=== PATIENT | female | born 1935 | race Caucasian/White ===

== ENCOUNTER → 2021-01-22 | Outpatient (CLI) | payer MEDICARE, OTHER ==
--- NOTE | 2021-01-22 08:43 | RAD ---
EXAM: Left hip, 2 views; left knee, 3 views. HISTORY: Pain. COMPARISON: None. FINDINGS: Left hip: 2 views of the left hip are obtained. There is no fracture, dislocation or subluxation. The re is a small bump along the femoral neck, finding which can be seen with chronic hip impingement. Left knee: 3 views left knee are obtained. There is mild tricompartmental spurring. There is no fract ure, dislocation or subluxation. There is no significant joint effusion. IMPRESSION: 1. 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 2. Findings suggesting a component of left hip impingement. 3. No acute osseous finding. Electronically signed by: Hanh Muhammad MD (01/22/2021 8:41 AM) [id number]
== END ==
LOC: RAD 08:25
PROVIDERS: ATTEND Internal Medicine
DX: M17.12 Unilateral primary osteoarthritis, left knee (principal); M25.762 Osteophyte, left knee
CPT/HCPCS: 73502; 73562